=== PATIENT | male | born 1945 | race Hispanic/Latino ===

== ENCOUNTER 2016-11-10 02:38 | Inpatient (IN) | payer OTHER ==
[~2016-11-10] VITALS: Ht 193 cm; Wt 124.7 kg
[~2016-11-10 02:38] MED LIST: AMILORIDE HCL5 M1 PO; AMLODIPINE BESYL5 M1 PO; ASPIRIN EC81 M1 PO; ATENOLOL100 M1 PO; ATIVAN1 M1 PO; ATORVASTATIN CA10 M1 PO; DICYCLOMINE HCL10 M1 PO; FAMOTIDINE20 M1 PO; FLOMAX0.4 M1 PO; GLIPIZIDE5 M2 PO; HYDROCHLOROTH12.5 M3 PO; LANTUS SOL100 UNIT/1; LINZESS145 MC1 PO; METHADONE HCL5 MG PO; MYTAB GAS80 M1; OMEPRAZOLE40 M1 PO; PROAIR HFA8.5 GM INH; PROBIOTIC1 EACH PO; RANITIDINE HCL150 M2 PO; SERTRALINE HCL100 MG PO; SPIRIVA18 MCG INH; ZOFRAN4 M2 PO
--- NOTE | 2016-11-10 16:32 | Admission Core Measures ---
Admission Meds I reviewed the following Meds: Current Medications Sig/Cheri Start time Last Medication Dose Stop Time Status Admin Acetaminophen 975 MG ONCE 11/10 0000 NR (Tylenol) 11/10 2359 Albuterol Sulfate 2 PUF Q4-6 PRN PRN 11/10 1615 UNVr (Ventolin) Amlodipine Besylate 5 MG DAILY 11/11 1000 AC (Norvasc) Atenolol 100 MG DAILY 11/11 1000 AC (Tenormin) Atorvastatin Calcium 10 MG DAILY 11/11 1000 AC (Lipitor) Cefazolin Sodium 3,000 MG ONCE 11/10 0000 NR (Kefzol-Ancef Inj) 11/10 2359 Dicyclomine HCl 10 MG Q6 11/10 1800 AC (Bentyl) Famotidine 20 MG DAILY 11/11 1000 AC (Pepcid) Glipizide 5 MG 0700,1700 11/10 1700 AC (Glucotrol 5MG Tab) Hydrochlorothiazide 12.5 MG DAILY 11/11 1000 AC (Hydrodiuril) Insulin Detemir 20 UNITS DAILY 11/11 1000 UNVr (Levemir) Lactobacillus 2 CAP DAILY 11/11 1000 AC Acidophilus (Probiotic) Lorazepam 1 MG TID 11/10 2200 AC (Ativan) Methadone HCl 20 MG TID 11/10 2200 AC (Dolophine) Omeprazole 40 MG DAILY AC 11/11 0700 AC (Prilosec) Oxycodone HCl 10 MG ONCE 11/10 0000 NR (Roxicodone) 11/10 2359 Ropivacaine 500 ML ONCE ONE 11/10 1445 AC (NAROPIN) 11/12 0824 ON-Q Ball 1 BAG Sertraline HCl 100 MG DAILY 11/11 1000 AC (Zoloft) Simethicone 80 MG DAILY NEEDED PRN 11/10 1630 AC (Mylicon) Tamsulosin HCl 0.4 MG DAILY 11/11 1000 AC (Flomax) Tiotropium [place] 1 PUF DAILY 11/11 1000 AC (Spiriva) Acute Coronary Syndrome Inclusion Criteria ACS Diagnosis No Inpatient Core Measures LDL Reminder: If No, please order W/I first 24hr of stay Congestive Heart Failure Inclusion Criteria CHF Diagnosis No Cerebrovascular accident Inclusion Criteria CVA/TIA Diagnosis No Inpatient Core Measures Bedside Swallow Eval Reminder: If BSE failed, place ST order Antithrombotic Reminder: Order Antithrombotic Medication by end of day 2 Antithrombotic Reminder: Document Reason Antithrombotic Not ordered by end of day 2 AFIB/Flutter Reminder: If Present, add to problem list AFIB/Flutter Reminder: Order Anticoag Medication for pts with AFIB/Flutter Atherosclerosis Reminder: If Present, add to problem list LDL Reminder: If No, please order W/I first 24hr of stay PT Order Reminder: If No, please order Venous thromboembolism Inpatient Core Measures VTE Risk Factors: Age > 40, [facility] prophylaxis d/t No contraindications No VTE Pharm Prophylaxis d/t No contraindications Inclusion Criteria - Per Current guidelines, there needs to be overlap - treatment for the first 5 days of Warfarin therapy. - Parenteral Anticoagulation (IV or SC) needs to be - given along with Warfarin therapy. VTE Diagnosis No VTE Type NONE VTE Confirmed by (Test) NONE Problem List As ranked by this Provider includes Assessment & Plan 1. Unilateral primary osteoarthritis, left knee HOME MEDS Home Med List Albuterol Sulfate (Proair Hfa) 90 MCG HFA.AER.AD 2 PUF INH Q4-6 PRN PRN ASTHMA (Reported) Amiloride HCl 5 MG TABLET 2 TAB PO DAILY SWELLING (Reported) Amlodipine Besylate 5 MG TABLET 1 TAB PO DAILY HTN (Reported) Aspirin (Ecotrin*) 81 MG TABLET.DR 1 TAB PO DAILY PROPHO (Reported) Atenolol 100 MG TABLET 1 TAB PO DAILY HTN (Reported) Atorvastatin Calcium 10 MG TABLET 1 TAB PO DAILY CHOLESTEROL (Reported) Dicyclomine HCl 10 MG CAPSULE 1 TAB PO 4X PER DAY IBS (Reported) Famotidine 20 MG TABLET 1 TAB PO DAILY GERD (Reported) Glipizide 5 MG TABLET 1 TAB PO BID DM II (Reported) Hydrochlorothiazide 12.5 MG CAPSULE 1 CAP PO DAILY HTN (Reported) Insulin Glargine,Hum.rec.anlog (Lantus Solostar) 100 UNIT/ML (3 ML) INSULN.PEN 20 UNITS DAILY DM II (Reported) Lactobacillus Acidophilus (Probiotic) 10 BILLION CELL CAPSULE 2 TAB PO DAILY IBS (Reported) Linaclotide (Linzess) 145 MCG CAPSULE 1 CAP PO DAILY CONSTIPATION (Reported) Lorazepam (Ativan) 1 MG TABLET 1 TAB PO TID ANXIETY (Reported) Methadone HCl 5 MG TABLET 20 MG PO TID pain (Reported) Omeprazole 40 MG CAPSULE.DR 1 CAP PO DAILY GERD (Reported) Ondansetron HCl (Zofran) 4 MG TABLET 1 TAB PO Q6-8P PRN NAUSEA (Reported) Ranitidine HCl 150 MG CAPSULE 1 CAP PO BID GERD (Reported) Sertraline HCl 100 MG TABLET 1 TAB PO DAILY DEPRESSION (Reported) Tamsulosin HCl (Flomax) 0.4 MG CAP.ER.24H 1 CAP PO DAILY BPH (Reported) Tiotropium [place] (Spiriva) 18 MCG CAP.W.DEV 1 CAP INH DAILY ASTHMA ( Reported)
[2016-11-10] MEDS ORDERED: ASPIRIN EC325 M2 PO (16:47)
[2016-11-10] MEDS ORDERED: DILAUDID2 M1 PO (16:47)
[2016-11-10] MEDS ORDERED: MS CONTIN30 M1 PO (16:47)
[2016-11-10] MEDS ORDERED: COLACE100 M1 PO (16:47)
[2016-11-10] MEDS ORDERED: MIRALAX17 G1 PO (16:47)
--- NOTE | 2016-11-10 16:52 | Patient Discharge Instructions ---
Discharge Instructions General Discharge Information You were seen/treated for: LEFT KNEE PAIN RELATED TO OSTEOARTHRITIS You had these procedures: LEFT TOTAL KNEE REPLACEMENT Watch for these problems: Increasing pain despite the use of pain medication. Increasing redness, warmth, swelling. Drainage of any type from incision. Inability to bear weight on left leg. Fever greater than 101.5 degrees. Do not soak the wound: Yes No bath, but you may shower: Yes Other wound care: Keep wound clean and dry. No ointments of any type on incision. No exceptions. Daily dry dressing changes to begin post operative day 2. Special Instructions: Aspirin 325 mg is to be taken twice daily to offer protection from the development of a blood clot. Take with food. Colace and miralax for bowel health if the pain medications cause constipation. Diet Continue normal diet: Yes Recommended Diet: Diabetic Additional DIET Information: Advance as tolerated Activity Full Activity/No Limits: No Activity Self Limited: Yes Pounds, do NOT lift more than: 10 Additional ACTIVITY Info: Weight bear as tolerated on left leg Acute Coronary Syndrome Inclusion Criteria At DC or during hospital stay patient has or had the following: ACS DIAGNOSIS No Discharge Core Measures Meds if any: Prescribed or Continued at Discharge Meds if any: NOT Prescribed or Continued at Discharge Congestive Heart Failure Inclusion Criteria At DC or during hospital stay patient has or had the following: CHF DIAGNOSIS No Discharge Core Measures Meds if any: Prescribed or Continued at Discharge Meds if any: NOT Prescribed or Continued at Discharge Cerebrovascular accident Inclusion Criteria At DC or during hospital stay patient has or had the following: CVA/TIA Diagnosis No Discharge Core Measures Meds if any: Prescribed or Continued at Discharge Meds if any: NOT Prescribed or Continued at Discharge Venous thromboembolism Inclusion Criteria VTE Diagnosis No VTE Type NONE VTE Confirmed by (Test) NONE Discharge Core Measures - Per Current guidelines, there needs to be overlap - treatment for the first 5 days of Warfarin therapy. - If discharged on Warfarin prior to 5 days of - overlap therapy, the patient will need to be - assessed for post discharge needs including - *Post discharge parental anticoagulation - *Warfarin and/or parental anticoagulation education - *Follow up date to check INR post discharge At least 5 days overlap therapy as Inpatient No Meds if any: Prescribed or Continued at Discharge Note: Overlap Therapy is Warfarin and Anticoagulant Meds if any: NOT Prescribed or Continued at Discharge
--- NOTE | 2016-11-10 16:58 | Surgical Discharge Summary ---
Visit Information Visit Dates Admission Date: 11/10/16 Discharge Date: 11/13/16 History of Present Illness Chief Complaint: Left knee pain related to osteoarthritis Surgical History Pertinent Surgical History: non-contributory Review of Systems: See H&P Hospital Course Course Attending Physician: CASANDRA RODRIGUEZ MD Primary Care Physician: JODI BECERRA,[facility] Course: Partha was admitted to the hospital on 11/10/2016 for an elective left total knee replacement. He tolerated the procedure well and was transferred to a general surgical floor. There his vital signs were stable and within normal limits. His neurovascular status remained intact. His diet was advanced and tolerated. He voided spontaneously. His pain was controlled with oral pain medications. He was evaluated and treated by physical therapy. On POD #3, his left leg was swollen and tender. A DVT was ordered and he was not found to have a DVT. He was deemed appropriate for discharge home with outpatient services. Allergies: Coded Allergies: No Known Allergies (11/08/16) Disposition Summary Disposition Principal Diagnosis: Left knee unilateral primary osteoarthritis Additional Diagnosis: None Discharge Disposition: home health services Discharge Instructions General Discharge Information Code Status: Full Code Patient's Diet: Diabetic, advance as tolerated Patient's Activity: WBAT Follow-Up Instructions/Appts: Follow up with Dr. Rodriguez in 6 weeks from date of surgery. Call office to arrange/confirm this appointment. Medications at Discharge Discharge Medications: Stop taking the following medications: Aspirin (Ecotrin*) 81 MG TABLET.DR ORAL DAILY Continue taking these medications: Albuterol Sulfate (Proair Hfa) 90 MCG HFA.AER.AD 2 Puff Inhale through mouth EVERY 4-6 HOURS NEEDED as needed for ASTHMA Tiotropium [place] (Spiriva) 18 MCG CAP.W.DEV 1 Capsule Inhale through mouth DAILY Amiloride HCl (Amiloride HCl) 5 MG TABLET 2 Tablet ORAL DAILY Amlodipine Besylate (Amlodipine Besylate) 5 MG TABLET 1 Tablet ORAL DAILY Ranitidine HCl (Ranitidine HCl) 150 MG CAPSULE 1 Capsule ORAL TWICE DAILY Atenolol (Atenolol) 100 MG TABLET 1 Tablet ORAL DAILY Atorvastatin Calcium (Atorvastatin Calcium) 10 MG TABLET 1 Tablet ORAL DAILY Dicyclomine HCl (Dicyclomine HCl) 10 MG CAPSULE 1 Tablet ORAL 4X PER DAY Famotidine (Famotidine) 20 MG TABLET 1 Tablet ORAL DAILY Glipizide (Glipizide) 5 MG TABLET 1 Tablet ORAL TWICE DAILY Hydrochlorothiazide (Hydrochlorothiazide) 12.5 MG CAPSULE 1 Capsule ORAL DAILY Insulin Glargine,Hum.rec.anlog (Lantus Solostar) 100 UNIT/ML (3 ML) INSULN.PEN 20 Units DAILY Lactobacillus Acidophilus (Probiotic) 10 BILLION CELL CAPSULE 2 Tablet ORAL DAILY Linaclotide (Linzess) 145 MCG CAPSULE 1 Capsule ORAL DAILY Lorazepam (Ativan) 1 MG TABLET 1 Tablet ORAL THREE TIMES DAILY Methadone HCl (Methadone HCl) 5 MG TABLET 20 Milligram ORAL THREE TIMES DAILY Instructions: per mt hospital record dated 10/11/2016, patient takes 20 mg methadone tid Omeprazole (Omeprazole) 40 MG CAPSULE.DR 1 Capsule ORAL DAILY Ondansetron HCl (Zofran) 4 MG TABLET 1 Tablet ORAL Every 6-8 Hours as Needed as needed for NAUSEA Simethicone (Mytab Gas) 80 MG TAB.CHEW as needed for IBS Tamsulosin HCl (Flomax) 0.4 MG CAP.ER.24H 1 Capsule ORAL DAILY Sertraline HCl (Sertraline HCl) 100 MG TABLET 1 Tablet ORAL DAILY Start taking the following new medications: Aspirin (Ecotrin*) 325 MG TABLET.DR 1 Tablet ORAL TWICE DAILY Qty = 60 No Refills Docusate Sodium (Colace) 100 MG CAPSULE 1 Capsule ORAL TWICE DAILY Qty = 14 No Refills Instructions: DISCONTINUE USE IF YOU DEVELOP LOOSE STOOL OR DIARRHEA Polyethylene Glycol 3350 (Miralax) 17 GRAM POWD.PACK 1 Packet ORAL DAILY Qty = 7 No Refills Instructions: dissolve in water, DISCONTINUE USE IF YOU DEVELOP LOOSE STOOL OR DIARRHEA Hydromorphone HCl (Dilaudid) 2 MG TABLET 1-2 Tablet ORAL EVERY 4-6 HOURS as needed for PAIN Qty = 36 No Refills Morphine Sulfate (Ms Contin) 30 MG TABLET.ER 1 Tablet ORAL TWICE DAILY Qty = 6 No Refills
--- NOTE | 2016-11-10 18:30 | Operative Report ---
Operative/Inv Procedure Report Surgery Date: 11/10/16 Name of Procedure: Left total knee replacement Pre-Operative Diagnosis: Primary left knee DJD Post-Operative Diagnosis: Same Estimated Blood Loss: 50ml to 100ml Surgeon/Guard Chief: JENNIFER BECERRA,CASANDRA Ayala Anesthesia: block Operative/Procedure Note Note: Description of Procedure: The patient was taken to the operating room and positively identified. After induction of spinal anesthesia and administration of appropriate pre-operative antibiotics, the patient was positioned supine on the operating room table and all bony prominences were well padded. A well-padded pneumatic tourniquet was placed on the left upper thigh. After performing a surgical timeout, the left lower extremity was prepped and draped in the usual sterile fashion. It was noted that the patient had about a 15 flexion contracture and only flexed to approximately 65. After exsanguination with Esmarch the tourniquet was inflated to 250mm of mercury. A standard medial parapatellar approach was made to the knee. This was carried down through skin and subcutaneous tissue to the level of the fascia. Meticulous hemostasis was maintained with Bovie electrocautery. The extensor mechanism and patellar retinaculum were opened sharply and the patella was everted. The infrapatellar fat was resected in order to improve exposure. Osteophytes were trimmed from the patella and femoral condyles and the patella was re-everted and tucked laterally. A medial release was performed and the cruciate ligaments were resected. As he was extremely tight, I elected to perform a quadriceps snip. This allowed greater mobilization of the tibia. His history of a [place] procedure also greatly complicated the exposure. The elevated portion of the tibial tubercle proximally was debulked to take some of the tension off the patellar tendon itself. The tibia was then subluxed anteriorly. Utilizing the appropriate extra-medullary guide, the proximal tibia was trimmed perpendicular to the long axis of the tibial shaft. Attention was then turned to the femur. After opening the medullary canal, the distal femoral cut was made in 6 degrees of valgus utilizing the appropriate intra-medullary guide. The extension gap was checked and found to be appropriate. The femur was then sized and the remainder of the femoral cuts were made with a size 7 4-in-1 femoral cutting guide. The flexion gap was checked and found to be symmetric and appropriate. The knee was then trialed with a size 7 femoral component, a size 7 tibial component and a size 16 mm TS polyethylene insert. The patella was trimmed to accept an A 38 patella. This yielded much improved range of motion, stability and patellar tracking. All trial components were removed and the knee was copiously irrigated with sterile saline. All components were cemented into place with Panraven Simplex cement. All the components were of the Panraven Triathlon knee system of the above stated sizes. The knee was again irrigated after cementation. The extensor mechanism and patellar retinaculum were repaired using interrupted #1 vicryl suture. The skin was re-approximated with 2-0 vicryl and closed with stephanie. A sterile dressing was applied, the tourniquet was deflated, the patient was awakened and taken to the recovery room in satisfactory condition.
[2016-11-10 21:00] VITALS: BP 130/60
--- NOTE | 2016-11-10 22:11 | PN- Orthopedic ---
Subjective Subjective: POC S/P LEFT TKA MODERATE PAIN(H/O CHRONIC PAIN MANAGEMENT) DENIES CP, SOB, NO N+V WITH DIET SITTING UP IN BED NOW EATING A MEAL Objective Vital Signs and I&Os Vital Signs Date Time Temp Pulse Resp B/P B/P Pulse O2 O2 Flow FiO2 Mean Ox Delivery Rate 11/10 2099 99 Nasal 2.0L Cannula 11/10 2099 97.6 60 18 130/60 99 Nasal 2.0L Cannula Physical Exam: CV: RRR LUNGS: CLEAR ABD: SOFT, +BS EXT: DRSG DRY DISTAL CMS INTACT HEMOVAC: SANGUINOUS DRAIANGE ONQ IN PLACE Assessment/Plan Assessment/Plan ORTHO STABLE PLAN TITRATE PAIN MEDS ICE TO RIGHT KNEE AT ALL TIMES LARGE AMOUNT OF DRAINAGE EXPECTED OOB WITH PT IN AM WBAT LEFT LE Core Measures/Miscellaneous Venous Thromboembolism VTE Risk Factors: Age > 40, Surgery VTE Contraindications: No Contraindications VTE Diagnosis: No VTE Type: NONE VTE Confirmed by (Test): NONE Beta Rossy Is Beta Rossy a Home Med? Yes Antibiotics Is Patient on Antibiotics? Yes If Yes: prophylaxis
--- NOTE | 2016-11-10 22:30 | NUR ---
Admission Summary: Patient to floor from PACU s/p L TKR. C/o pain 02/24, administered IV morphine and IV Tylenol per order. Has alex wrap in place to LLE, utilizing ice therapy. On Q pump to (L) adductor canal @ 5cm @ 12ml, may increase OnQpump to 14ml. Patient may only ambulate under supervision of PT, nursing to remove On Q pump catheter 11/12/16. Also has hemovac in place, per surgical PA, patient will be putting out large amounts of drainage from hemovac. This RN emptied hemovac of 180mL of sanguineous drainage. +PP, +CMS to BLE, ALp in place, Sukhdeep stocking placed to RLE. Patient is A&O, O2 2L via NC, sat 99%. No cardiac/resp distress. #22 LH, D5 1/2NS @ 75ml/hr. LBM this AM, patient voided 600mL of clear yellow urine. Accucheck 134mg/dL, denies s/sx of hypo/hyperglycemia. Patient given dinner, eating without difficulty. Patient oriented to room, bed alarm in place, bed locked and low, call cell and belongings within reach. Report given to oncoming nurse.
[2016-11-10 23:12] VITALS: BP 130/74
[2016-11-11 03:06] VITALS: BP 140/64
[2016-11-11 06:39] VITALS: BP 150/68
--- NOTE | 2016-11-11 07:46 | PN- Orthopedic ---
Subjective Subjective: Postop day 1 status post left total knee arthroplasty. Patient points of moderate knee pain that is controlled with IV pain medication. No acute events overnight, no nausea no vomiting no fever no flulike illness. On-Q pump in place. Hemovac drain in place. Not feeling lightheaded or dizzy. Blood sugar was elevated to 241 overnight. he is voiding without difficluty. Patient also complains of chronic right lower quadrant abdominal pain. He has history of IBS with constipation. Last bowel movement was yesterday prior to his surgery. He states that he has been having worsening complaints of right lower quadrant abdominal pain for the last 2 weeks but it started about a year and half ago. He states he gets daily every morning at 5 AM and states it is as bad as his knee pain every morning, it subsides after few hours. He admits that he did not want to say anything to his primary care doctor about it before surgery because he did not want to have the surgery delayed. He is on Linzess and Bentyl for this which has been helpful, he also takes medication for constipation and stool softeners which seemed to help as well. He has been on Movantik the past and states that he had an adverse reaction to that, made his abdominal pain worse. He complains of no additional abdominal symptoms no flank pain and no pain with palpation of the abdomen. No urinary symptoms. Objective Vital Signs and I&Os Vital Signs Date Time Temp Pulse Resp B/P B/P Pulse O2 O2 Flow FiO2 Mean Ox Delivery Rate 11/11 0639 98.0 64 20 150/68 96 Room Air 11/11 0306 98.1 58 20 140/64 96 Room Air 11/11 0000 Nasal 2.0L Cannula 11/10 2312 98.4 57 20 130/74 99 Nasal 2.0L Cannula 11/10 2100 99 Nasal 2.0L Cannula 11/10 2100 97.6 60 18 130/60 99 Nasal 2.0L Cannula Intake & Output 11/11 0800 11/11 0000 11/10 1600 11/10 0811/10 0000 11/09 1600 Intake Total 840 705 Output Total 1430 1160 Balance -590 -455 Intake, IV 600 225 Intake, Oral 240 480 Output, 580 560 Drainage Output, Urine 850 600 Patient 275 lb Weight Physical Exam: Well-developed well-nourished no apparent distress. HEENT: Atraumatic, extraocular motion intact Neck: Supple, no lymphadenopathy Respiratory: No respiratory distress Abdomen: Soft nontender nondistended, bowel sounds normal. Positive flatus. Extremities: No edema LEFT lower extremity dressing in place, Range of motion is 0- 45. Compression wrap in place. Hemovac in place which was removed by myself, small amount of blood noted in Hemovac drain. Removed without difficulty and dressing placed. ALPS in place Neurovascularly intact distally Bilateral calves are supple, nontender. Neuro: Alert and oriented x3 Psych: Mood affect normal, normal memory normal judgment. Skin: Warm and dry, no rash on exposed skin Results Last 48 Hours of Labs: Laboratory Tests 11/11 0710 Chemistry Sodium Pending Potassium Pending Chloride Pending Carbon Dioxide Pending Anion Gap Pending BUN Pending Creatinine Pending BUN/Creatinine Ratio Pending Hematology CBC w Diff Pending WBC Pending RBC Pending Hgb Pending Hct Pending MCV Pending MCH Pending RDW Pending Plt Count Pending MPV Pending PUBS MCHC Pending hemovac drain 560 last pm, 580 overnight. Assessment/Plan Assessment/Plan 71-year-old male postop day 1 status post left total knee arthroplasty. -Orthopedically stable -Hemovac drain removed -Follow labs this morning, may need blood transfusion secondary to blood loss and surgery and greater than 1000 mL an Hemovac drain since surgery -DC Toradol due to history of renal disease, followed BEP this morning -Aspirin for DVT prophylaxis -Continue On-Q pump -alps for DVT prophylaxis -Continue current pain regimen with his usual methadone dose. -Add regular insulin sliding scale due to hyperglycemia, goal to keep blood sugar less than 120 -DC IV fluids -Continue diabetic diet -Out of bed with physical therapy -Perioperative antibiotics completed -Dressing change tomorrow -Regards to patient's abdominal pain, it is chronic and worsening over the last several weeks, likely related to IBS and constipation, it may be worse while he is here due to the added narcotic pain medication. He has tried medications for opioid-induced constipation and it made him worse. We'll continue bowel regiment and continue to monitor. No need for imaging studies of the abdomen at this time. Core Measures/Miscellaneous Venous Thromboembolism VTE Risk Factors: Age > 40, Surgery VTE Contraindications: No Contraindications VTE Diagnosis: No VTE Type: NONE VTE Confirmed by (Test): NONE Beta Rossy Is Beta Rossy a Home Med? Yes Antibiotics Is Patient on Antibiotics? Yes If Yes: prophylaxis
[2016-11-11 08:51] LABS: ABSOLUTE BASOPHIL COUNT 0 /CUMM (0.0-0.2); ABSOLUTE EOSINOPHIL COUNT 0 /CUMM (0.0-0.7); ABSOLUTE GRANULOCYTE CT 6.3 /CUMM (1.4-6.5); ABSOLUTE LYMPH COUNT 0.6 /CUMM (1.2-3.4); ABSOLUTE MONOCYTE COUNT 0.6 /CUMM (0.10-0.60); BASOPHIL % 0 % (0.0-2.0); EOSINOPHIL % 0 % (0-5); HEMATOCRIT 31.3 % (42-52); MEAN CORPUSCULAR HGB CONC 33.1 G/DL (33.0-37.0); MEAN CORPUSCULAR VOLUME 99.7 FL (80.0-94.0); MEAN PLATELET VOLUME 8.9 FL (7.4-10.4); PLATELET COUNT 183 /CUMM (130-400); RBC DISTRIBUTION WIDTH 13.1 % (11.5-14.5); RED BLOOD CELL CT 3.14 /CUMM (4.70-6.10); WHITE BLOOD CELL COUNT 7.5 /CUMM (4.8-10.8)
[2016-11-11 10:05] LABS: GRANULOCYTE % 84.2 % (42.2-75.2)
[2016-11-11 14:24] VITALS: BP 144/70
--- NOTE | 2016-11-11 22:19 | NUR ---
ALERT AND ORIENTED X 3. VITAL SIGNS STABLE. DENIES CHEST PAIN. + PULSES ON ROOM AIR. DSG TO L KNEE IS C/D/I. ONQ PUMP AND ICE PACK TO LEFT KNEE. MEDICATION GIVEN FOR PAIN. WILL CONTINUE TO MONITOR
[2016-11-11 22:22] VITALS: BP 142/58
[2016-11-12 06:22] VITALS: BP 138/64
--- NOTE | 2016-11-12 07:24 | PN- Orthopedic ---
Subjective Subjective: Patient comfortable, still with moderate pain although it has improved. He has been up and ambulatory with physical therapy. He denies any flulike illness, no nausea no vomiting, no chest pain or abdominal pain, no calf pain. He states he has a mild cough. He had a fever last night of 101 Objective Vital Signs and I&Os Vital Signs Date Time Temp Pulse Resp B/P B/P Pulse O2 O2 Flow FiO2 Mean Ox Delivery Rate 11/12 06 100.1 78 20 138/64 97 Room Air 11/11 2222 101.1 80 18 142/58 95 Room Air 11/11 1424 97.8 65 20 144/70 97 Room Air 11/11 0947 64 150/68 11/11 0947 64 150/68 11/11 0945 64 150/68 Intake & Output 11/12 0800 11/12 0000 11/11 1600 11/11 0800 11/11 0000 11/10 1600 Intake Total 400 1400 840 705 Output Total 8786 517 0554 1160 Balance -1300 -450 1400 -590 -455 Intake, IV 600 600 225 Intake, Oral 400 800 240 480 Output, 580 560 Drainage Output, Urine 1300 850 850 600 Patient 275 lb Weight Physical Exam: Well-developed well-nourished no apparent distress. HEENT: Atraumatic, extraocular motion intact Neck: Supple, no lymphadenopathy Respiratory: No respiratory distress Extremities: No edema LEFT lower extremity dressing in place, dressing removed and new dry sterile dressing applied Incision line is clean dry and intact with minimal bloody drainage. No signs of infection. Mild joint effusion Range of motion is 0-60. Neurovascularly intact distally Bilateral calves are supple, nontender. Neuro: Alert and oriented x3 Psych: Mood affect normal, normal memory normal judgment. Skin: Warm and dry, no rash on exposed skin Results Last 48 Hours of Labs: Laboratory Tests 11/11 0710 Chemistry Sodium (137 - 145 mmol/L) 134 L Potassium (3.5 - 5.1 mmol/L) 4.7 Chloride (98 - 107 mmol/L) 102 Carbon Dioxide (22 - 30 mmol/L) 23 Anion Gap (5 - 16) 9 BUN (9 - 20 mg/dL) 22 H Creatinine (0.7 - 1.2 mg/dL) 1.1 Estimated GFR (>60 ml/min) > 60 BUN/Creatinine Ratio (7 - 25 %) 20.0 Hematology CBC w Diff NO MAN DIFF REQ WBC (4.8 - 10.8 /CUMM) 7.5 RBC (4.70 - 6.10 /CUMM) 3.14 L Hgb (14.0 - 18.0 G/DL) 10.4 L Hct (42 - 52 %) 31.3 L MCV (80.0 - 94.0 FL) 99.7 H MCH (27.0 - 31.0 PG) 33.0 H RDW (11.5 - 14.5 %) 13.1 Plt Count (130 - 400 /CUMM) 183 MPV (7.4 - 10.4 FL) 8.9 Gran % (42.2 - 75.2 %) 84.2 H Lymphocytes % (20.5 - 51.1 %) 7.6 L Monocytes % (1.7 - 9.3 %) 8.2 Eosinophils % (0 - 5 %) 0 Basophils % (0.0 - 2.0 %) 0 L Absolute Granulocytes (1.4 - 6.5 /CUMM) 6.3 Absolute Lymphocytes (1.2 - 3.4 /CUMM) 0.6 L Absolute Monocytes (0.10 - 0.60 /CUMM) 0.6 Absolute Eosinophils (0.0 - 0.7 /CUMM) 0 Absolute Basophils (0.0 - 0.2 /CUMM) 0 PUBS MCHC (33.0 - 37.0 G/DL) 33.1 Assessment/Plan Assessment/Plan 71-year-old male postop day 2 status post left total knee arthroplasty. -Orthopedically stable -On-Q was removed -Monitor for fever today, recommend incentive spirometer, patient with a mild cough questionable atelectasis. Consider fever workup if he spikes temperature again today -Aspirin for DVT prophylaxis -alps for DVT prophylaxis -Continue current pain regimen with his usual methadone dose. -Continue diabetic diet -Out of bed with physical therapy -dressing change daily -anticipate discharge home tomorrow. Core Measures/Miscellaneous Venous Thromboembolism VTE Risk Factors: Age > 40, Surgery VTE Contraindications: No Contraindications VTE Diagnosis: No VTE Type: NONE VTE Confirmed by (Test): NONE Beta Rossy Is Beta Rossy a Home Med? Yes Antibiotics Is Patient on Antibiotics? Yes If Yes: prophylaxis Antibiotics Is Patient on Antibiotics? Yes If Yes: prophylaxis
[2016-11-12 13:57] VITALS: BP 160/70
[2016-11-12 22:46] VITALS: BP 150/58
[2016-11-13 06:38] VITALS: BP 154/58
--- NOTE | 2016-11-13 08:07 | PN- Orthopedic ---
Subjective Subjective: Patient POD#3 s/p left total knee replacement. Extremely jovial. No complaints of pain, N/V, F/C, CP/SOB. Ambulating with PT well. Voiding spontaneously. Tolerating a regular diet. Objective Vital Signs and I&Os Vital Signs Date Time Temp Pulse Resp B/P B/P Pulse O2 O2 Flow FiO2 Mean Ox Delivery Rate 11/13 0638 98.9 78 16 154/58 94 Room Air 11/12 2246 99.8 79 16 150/58 95 Room Air 11/12 1357 98.9 74 20 160/70 95 Room Air 11/12 1332 Room Air Room Air 11/12 0900 78 138/64 Intake & Output 11/13 1600 11/13 0800 11/13 0000 11/12 1600 11/12 0800 11/12 0000 Intake Total 120 120 600 400 Output Total 950 1500 850 Balance -830 120 600 -1500 -450 Intake, Oral 120 120 600 400 Number 2 Bowel Movements Output, Urine 950 1500 850 Physical Exam: Gen: AAox3 in NAD Cor: S1+S2+ Lungs: CTA alla Abd: soft, NT, ND, +BS x4 Ext: right leg with positive Paula's sign. Edematous lower extremity. palpable DP pulse. Dressing changed. Incision C/D/i with stephanie. No surrounding erythema or drainage noted. Current Medications: Current Medications Sig/Cheri Start time Last Medication Dose Route Stop Time Status Admin Albuterol Sulfate 2 PUF Q4-6 PRN PRN 11/10 2045 AC INH Amlodipine Besylate 5 MG DAILY 11/11 1000 AC 11/12 PO 0859 Aspirin 325 MG BID 11/100 AC 11/12 PO 213 Atenolol 100 MG DAILY 11/11 1000 AC 11/12 PO 0858 Atorvastatin Calcium 10 MG 17011/11 1700 AC 11/12 PO 1641 Bisacodyl 10 MG DAILY PRN 11/12 1145 AC NV Dicyclomine HCl 10 MG Q6 11/10 2359 AC 11/13 PO 0627 Docusate Sodium 100 MG BID 11/10 2200 AC 11/12 PO 2138 Famotidine 20 MG DAILY 11/11 1000 AC 11/12 PO 0859 Glipizide 5 MG 0700,1700 11/11 0700 AC 11/13 PO 0627 Hydrochlorothiazide 12.5 MG DAILY 11/11 1000 AC 11/12 PO 0859 Hydromorphone HCl 2 MG Q4P PRN 11/10 204 AC PO Hydromorphone HCl 4 MG Q4P PRN 11/10 2045 AC 11/13 PO 0259 Insulin Aspart 0 TIDAC 11/11 1200 AC 11/13 SC 0735 Insulin Detemir 20 UNITS DAILY 11/11 1000 AC 11/13 SC 0736 Lactobacillus 2 CAP DAILY 11/11 1000 AC 11/12 Acidophilus PO 0859 Linaclotide 145 MCG DAILY 11/11 1000 AC 11/12 PO 0748 Lorazepam 1 MG TID 11/10 2200 AC 11/12 PO 2139 Methadone HCl 20 MG TID 11/10 2200 AC 11/12 PO 2139 Morphine Sulfate 2 MG Q2P PRN 11/10 2045 AC 11/12 IV 1356 Omeprazole 40 MG DAILY AC 11/11 0700 AC 11/13 PO 0627 Ondansetron HCl 4 MG Q6P PRN 11/10 2045 AC 11/11 IV 0645 Polyethylene Glycol 17 GM DAILY 11/11 1000 AC 11/12 PO 0857 Promethazine HCl 12.5 MG Q6P PRN 11/10 204 AC IV 11/17 1644 Ropivacaine 500 ML ONCE ONE 11/10 1445 DC ON-Q Ball 1 BAG INJ 11/12 0824 Sertraline HCl 100 MG DAILY 11/11 1000 AC 11/12 PO 0858 Simethicone 80 MG DAILY NEEDED PRN 11/10 204 AC PO Tamsulosin HCl 0.4 MG DAILY 11/11 1000 AC 11/12 PO 0900 Tiotropium [place] 1 PUF DAILY 11/11 1000 AC 11/11 INH 0944 Assessment/Plan Assessment/Plan A: POD #3 s/p left TKR; edematous left leg; AVSS. Plan: Will obtain DVT study left leg. If negative, D/C home today. Core Measures/Miscellaneous Venous Thromboembolism VTE Risk Factors: Age > 40, Surgery VTE Contraindications: No Contraindications VTE Diagnosis: No VTE Type: NONE VTE Confirmed by (Test): NONE Beta Rossy Is Beta Rossy a Home Med? Yes Antibiotics Is Patient on Antibiotics? Yes If Yes: prophylaxis
--- NOTE | 2016-11-13 08:34 | NUR ---
NURSING NOTE: PATIENT LEFT FLOOR VIA STRETCHER WITH DISTRIBUTION FOR ULTRASOUND. PATIENT A/OX3, PAIN CONTROLLED. WILL AWAIT RETURN
--- NOTE | 2016-11-13 09:14 | ULTRASOUND REPORT ---
EXAMINATION: US TRIPLEX LOWER EXTREMITY, LEFT CLINICAL INFORMATION: Left lower extremity of postoperative swelling, edema and tenderness; positive Paula's sign. COMPARISON: None. TECHNIQUE: Color-flow triplex imaging with spectral analysis and compression Doppler were performed on the lower extremity. FINDINGS: Respiratory variation, normal compression and augmented flow are noted throughout the left lower extremity. The visualized common femoral vein, proximal greater saphenous vein, femoral vein, profunda femoral vein, popliteal vein and visualized mid calf venous segments show no evidence of deep venous thrombosis. There is no Saenz's cyst. IMPRESSION: Normal triplex scan without evidence of deep venous thrombosis involving the lower extremity.
--- NOTE | 2016-11-13 09:14 | NUR ---
NURSING NOTE: PATIENT RETURNED TO FLOOR VIA STRETCHER WITH DISTRIBUTION FROM ULTRASOUND. NO ACUTE CHANGES IN PATIENT STATUS. WILL CONTINUE TO MONITOR.
[2016-11-13 09:26] VITALS: BP 154/58
--- NOTE | 2016-11-13 11:47 | NUR ---
NURSING NOTE: PATIENT LEFT FLOOR VIA W/C WITH THIS RN FOR DISCHARGE. PATIENT A/OX3, ALL PRESCRIPTIONS TO BE PICKED UP IN [facility]. PAIN CONTROLLED WITH MEDICATIONS. DISCHARGE INSTRUCTIONS LEFT WITH PATIENT. ALL BELONGINGS (3 BAGS) LEFT WITH PATIENT.
== END 2016-11-13 11:35 | disposition home health service (06) | DRG 470 ==
LOC: 2NB 02:38 → SDA 02:38 → ENRESERV 19:16 → 2NB 19:57 → ENPENDDIS 11-13 09:57 → 2NB 11-13 11:35
PROVIDERS: Nurse Practitioner; ADMIT Orthopaedic Surgery
PROC: 0SRD0J9 Replacement of Left Knee Joint with Synthetic Substitute, Cemented, Open Approach (ICD-10-PCS; principal; 2016-11-10)
DX: M17.12 Unilateral primary osteoarthritis, left knee (principal); E11.8 Type 2 diabetes mellitus with unspecified complications; J45.909 Unspecified asthma, uncomplicated; K21.9 Gastro-esophageal reflux disease without esophagitis; I10 Essential (primary) hypertension; E66.9 Obesity, unspecified; Z68.33 Body mass index [BMI] 33.0-33.9, adult; F43.10 Post-traumatic stress disorder, unspecified; Z85.118 Personal history of other malignant neoplasm of bronchus and lung; Z85.46 Personal history of malignant neoplasm of prostate; E78.5 Hyperlipidemia, unspecified; Z79.82 Long term (current) use of aspirin
CPT/HCPCS: 2NBP; 82436; 88305; 97110-GO; 97116-GO; 97161-GP; 97530-GO; C1713; J0131; J0690; J1030; J2405; J2550; J2795; J3490